=== PATIENT | male | born 1960 | race Caucasian/White ===

== ENCOUNTER 2018-05-01 13:36 | Emergency (ER) | payer OTHER ==
[~2018-05-01] VITALS: Ht 177.8 cm; Wt 120.2 kg
[~2018-05-01 13:36] MED LIST: ALLO100 PO; ASPI81CH PO; Atenolol25 MG PO; BENZ100A PO; CYCL10 PO; GABA300 PO; HYDMOR2 PO; KETO10 PO; NAPR500 PO; PANT40 PO; Roxicodone5 MG PO; TERB250 PO; TRAM50 PO; Zofran Odt4 MG SL; Zofran Odt8 MG SL
[2018-05-01 14:37] LABS: Source, Urine Clean Catch
[2018-05-01 14:50] LABS: BASOPHILS ABSOLUTE AUTO 0.05 K/mm3 (0.00-0.23); BASOPHILS PERCENT AUTO 1 % (0-2); EOSINOPHILS ABSOLUTE AUTO 0.12 K/mm3 (0.00-0.68); EOSINOPHILS PERCENT AUTO 1 % (0-6); Hematocrit 42.2 % (37.0-53.0); Hemoglobin 13.9 g/dL (13.5-17.5); IMMATURE GRAN ABSOLUTE AUTO 0.03 K/mm3 (0.00-0.10); IMMATURE GRAN PERCENT AUTO 0 % (0-1); LYMPHOCYTES ABSOLUTE AUTO 2.07 K/mm3 (0.84-5.20); LYMPHOCYTES PERCENT AUTO 19 % (21-46); MONOCYTES ABSOLUTE AUTO 0.83 K/mm3 (0.16-1.47); MONOCYTES PERCENT AUTO 8 % (4-13); Mean Corpuscular HGB 28.4 pg (26.0-34.0); Mean Corpuscular HGB Conc 32.9 g/dL (31.5-36.5); Mean Corpuscular Volume 86 fL (80-100); Mean Platelet Volume 9.3 fL (9.1-12.4); NEUTROPHILS ABSOLUTE AUTO 7.59 K/mm3 (1.96-9.15); NEUTROPHILS PERCENT AUTO 71 % (41-73); Platelet Count 222 K/mm3 (150-400); RDW Coefficient Variation 12.6 % (11.7-14.2); RDW Standard Deviation 39.8 fL (35.1-46.3); Red Blood Cell Count 4.89 M/mm3 (4.30-5.90); White Blood Cell Count 10.69 K/mm3 (4.00-11.30)
[2018-05-01 14:52] LABS: Appearance, Urine Clear (Clear); Bilirubin, Urine Neg (Neg); Blood, Urine Neg (Neg); Color, Urine Yellow (P-Yellow); Glucose Qualitative, Urine Neg (Neg); Ketones, Urine Neg (Neg); Leukocyte Esterase, Urine Neg (Neg); Nitrite, Urine Neg (Neg); Protein, Urine Neg (Neg); Specific Gravity, Urine 1.025 (1.003-1.022); Urobilinogen, Urine NORM (Normal)
[2018-05-01 15:06] LABS: Alanine Aminotransfer (ALT/SGP 59 U/L (12-78); Albumin, Blood 4.1 g/dL (3.4-5.0); Albumin/Globulin Ratio 1.2 (0.8-1.8); Alk Phos 112 U/L (50-136); Anion Gap 8 mmol/L (6-16); Aspartate Aminotrans (AST/SGOT 23 U/L (12-37); Bilirubin, Total 1.5 mg/dL (0.1-1.0); Blood Urea Nitrogen 21 mg/dL (8-24); Bun/Creatinine Ratio 20.4 (12.0-20.0); CO2, Blood 25 mmol/L (21-32); Calcium, Blood 8.7 mg/dL (8.5-10.1); Chloride, Blood 108 mmol/L (98-108); Creatinine, Blood 1.03 mg/dL (0.60-1.20); Globulin, Blood 3.4 g/dL (2.2-4.0); Glomerular Filtration Rate >60 (60-); Glucose, Blood 112 mg/dL (70-99); Potassium, Blood 3.6 mmol/L (3.5-5.5); Sodium, Blood 141 mmol/L (136-145); Total Protein, Blood 7.5 g/dL (6.4-8.2)
[2018-05-01] MEDS ORDERED: ONDA4ODT MM (17:57)
[2018-05-01] MEDS ORDERED: Roxicodone5 MG PO (17:57)
[2018-05-01] MEDS ORDERED: Augmentin 875-1 EACH PO (17:57)
== END 2018-05-01 18:38 | disposition home or self-care (01) ==
LOC: ER 13:36
PROVIDERS: Emergency Medicine
DX: K57.32 Diverticulitis of large intestine without perforation or abscess without bleeding (principal); Z88.5 Allergy status to narcotic agent; Z88.8 Allergy status to other drugs, medicaments and biological substances; Z79.899 Other long term (current) drug therapy; Z79.82 Long term (current) use of aspirin; I10 Essential (primary) hypertension; K21.9 Gastro-esophageal reflux disease without esophagitis; E78.5 Hyperlipidemia, unspecified
CPT/HCPCS: 36415; 74177; 80053; 81003; 83605; 83690; 85025; 96361; 96374-59; 96375; 96376; 99284-25; J1170; J1885; J2405; J7120; Q9967

== ENCOUNTER 2018-05-03 15:42 | Inpatient (IN) | payer OTHER ==
[~2018-05-03] VITALS: Ht 177.8 cm; Wt 123.1 kg
[~2018-05-03 15:42] MED LIST changes: +Augmentin 875-1 EACH PO; +ONDA4ODT MM
[2018-05-03] MEDS ORDERED: LOSA50 PO (16:32)
[2018-05-03 16:52] LABS: BASOPHILS ABSOLUTE AUTO 0.05 K/mm3 (0.00-0.23); BASOPHILS PERCENT AUTO 1 % (0-2); EOSINOPHILS ABSOLUTE AUTO 0.13 K/mm3 (0.00-0.68); EOSINOPHILS PERCENT AUTO 2 % (0-6); Hematocrit 38.8 % (37.0-53.0); Hemoglobin 12.9 g/dL (13.5-17.5); IMMATURE GRAN ABSOLUTE AUTO 0.02 K/mm3 (0.00-0.10); IMMATURE GRAN PERCENT AUTO 0 % (0-1); LYMPHOCYTES ABSOLUTE AUTO 2.17 K/mm3 (0.84-5.20); LYMPHOCYTES PERCENT AUTO 27 % (21-46); MONOCYTES ABSOLUTE AUTO 0.52 K/mm3 (0.16-1.47); MONOCYTES PERCENT AUTO 6 % (4-13); Mean Corpuscular HGB 28.9 pg (26.0-34.0); Mean Corpuscular HGB Conc 33.2 g/dL (31.5-36.5); Mean Corpuscular Volume 87 fL (80-100); Mean Platelet Volume 9.6 fL (9.1-12.4); NEUTROPHILS ABSOLUTE AUTO 5.19 K/mm3 (1.96-9.15); NEUTROPHILS PERCENT AUTO 64 % (41-73); Platelet Count 177 K/mm3 (150-400); RDW Coefficient Variation 12.4 % (11.7-14.2); RDW Standard Deviation 39.4 fL (35.1-46.3); Red Blood Cell Count 4.47 M/mm3 (4.30-5.90); White Blood Cell Count 8.08 K/mm3 (4.00-11.30)
[2018-05-03 17:16] LABS: Alanine Aminotransfer (ALT/SGP 62 U/L (12-78); Albumin, Blood 3.4 g/dL (3.4-5.0); Albumin/Globulin Ratio 0.9 (0.8-1.8); Alk Phos 98 U/L (50-136); Anion Gap 5 mmol/L (6-16); Aspartate Aminotrans (AST/SGOT 26 U/L (12-37); Bilirubin, Total 1.4 mg/dL (0.1-1.0); Blood Urea Nitrogen 16 mg/dL (8-24); Bun/Creatinine Ratio 17.3 (12.0-20.0); CO2, Blood 27 mmol/L (21-32); Calcium, Blood 8.5 mg/dL (8.5-10.1); Chloride, Blood 106 mmol/L (98-108); Creatinine, Blood 0.92 mg/dL (0.60-1.20); Globulin, Blood 3.6 g/dL (2.2-4.0); Glomerular Filtration Rate >60 (60-); Glucose, Blood 82 mg/dL (70-99); Potassium, Blood 4.2 mmol/L (3.5-5.5); Sodium, Blood 138 mmol/L (136-145)
--- NOTE | 2018-05-03 18:46 | NUR ---
PATIENT ADMITTED THIS SHIFT. HE IS ALERT AND ORIENTED. PAIN IN LOWER LEFT FLANK. PATIENT STATES THE PAIN AND PAIN MEDICATION MAKE HIS DIZZY AT TIMES. ENCOURAGED TO USE CALL LIGHT WHEN WHEN NEEDED. BEDSIDE URINAL GIVEN. AT BEDSIDE.
--- NOTE | 2018-05-04 04:45 | NUR ---
SHIFT SUMMARY THE PATIENT PRESENTED THIS SHIFT WITH ABDOMINAL PAIN, VITALS WNL, CLEAR LUNGS AND A&O X4. THE PATIENT WAS TAKEN TO X-RAY AT THE START OF THE SHIFT. THE PATIENT HAS BEEN AWAKE MOST OF THE SHIFT. THE PATIENT HAS REQUESTED PAIN MEDICATIONS TWICE THIS SHIFT. WILL CONTINUE TO MONITOR.
--- NOTE | 2018-05-04 18:39 | NUR ---
PATIENT HAS HAD NO COMPLAINTS OF PAIN AND STATED WHEN ASK, THAT HIS DISCOMFORT WAS NOT SOMETHING HE NEEDED PAIN MEDS FOR. HE IS ALERT AND ORIENTED AND PLEASANT, COOPERATIVE WITH CARES. NO CHANGES THIS SHIFT.
--- NOTE | 2018-05-05 06:40 | NUR ---
SHIFT SUMMARY: PT MEDCIATED FOR PAIN 3X THIS SHIFT c IV FENTANYL. PT REPORTS LLQ PAIN THAT INTESTIFIES c MOVEMENT. DENIES N/V/D. NO OTHER CHANGES. WILL CONT TO MONITOR AND PROVIDE CARE UNTIL PRESUMED BY ONCOMING RN.
--- NOTE | 2018-05-05 18:04 | NUR ---
SHIFT SUMMARY PT AXO, PLEASANT AND COOPERATIVE WITH CARE. UP AD TAYLOR IN ROOM, UP EVERY 45 MINUTES TO VOID URINE. CONTINUES TO HAVE LOOSE STOOL. PT REFUSED PAIN MEDICATION THIS SHIFT, STATES HE IS COMFORTABLE AT REST. AT 1440 PT'S SPOUSE COMPLAINED OF PATIENT HAVING PINPOINT RED RASH ON ARMS, ABDOMEN AND LEGS. DR BARRON NOTIFIED AT 1513, NEW ORDERS INIIATED. BED IN LOW POSITION, CALL LIGHT WITHIN REACH.
--- NOTE | 2018-05-06 04:43 | NUR ---
SHIFT SUMMARY: OT A&O X 4, INDEPENDENT IN ROOM. PT IS REPORTING MILD PAIN THAT INTESIFIES c MOVEMENT, HOWEVER IS REFUSING PAIN MEDS. PT REPORTS CONCERN IN REGARDS TO SBP BEING 140 - 150; HOWEVER, THIS IS WHAT THE PT HAS BEEN RUNNING SINCE ADMISSION. PT REPORTS HE NORMALLY RUNS 120 - 130. OTHERWISE VSS. PINPOINT RASH TO L ARM AND ACROSS ABDOMEN FROM POSSIBLE REACTION TO LEVAQUIN; PT HAS BEEN SWITCHED TO BACTRIM AND STARTED FIRST DOSE @ 2100. NS RUNNING @ 100 ML/HR. NO OTHER CHANGES TO REPORT. WILL CONT TO MONITOR AND PROVIDE CARE UNTIL PRESUMED BY ONCOMING RN.
[2018-05-06 05:16] LABS: BASOPHILS ABSOLUTE AUTO 0.05 K/mm3 (0.00-0.23); BASOPHILS PERCENT AUTO 1 % (0-2); EOSINOPHILS ABSOLUTE AUTO 0.15 K/mm3 (0.00-0.68); EOSINOPHILS PERCENT AUTO 2 % (0-6); Hematocrit 43.5 % (37.0-53.0); Hemoglobin 14.5 g/dL (13.5-17.5); IMMATURE GRAN ABSOLUTE AUTO 0.02 K/mm3 (0.00-0.10); IMMATURE GRAN PERCENT AUTO 0 % (0-1); LYMPHOCYTES PERCENT AUTO 20 % (21-46); MONOCYTES PERCENT AUTO 6 % (4-13); Mean Corpuscular HGB 28.2 pg (26.0-34.0); Mean Corpuscular HGB Conc 33.3 g/dL (31.5-36.5); Mean Corpuscular Volume 85 fL (80-100); Mean Platelet Volume 9.1 fL (9.1-12.4); NEUTROPHILS ABSOLUTE AUTO 6.91 K/mm3 (1.96-9.15); NEUTROPHILS PERCENT AUTO 72 % (41-73); Platelet Count 214 K/mm3 (150-400); RDW Coefficient Variation 12.3 % (11.7-14.2); RDW Standard Deviation 37.6 fL (35.1-46.3); Red Blood Cell Count 5.14 M/mm3 (4.30-5.90); White Blood Cell Count 9.63 K/mm3 (4.00-11.30)
[2018-05-06 05:40] LABS: Anion Gap 8 mmol/L (6-16); Blood Urea Nitrogen 17 mg/dL (8-24); Bun/Creatinine Ratio 17.5 (12.0-20.0); CO2, Blood 26 mmol/L (21-32); Calcium, Blood 9.1 mg/dL (8.5-10.1); Chloride, Blood 107 mmol/L (98-108); Creatinine, Blood 0.97 mg/dL (0.60-1.20); Glomerular Filtration Rate >60 (60-); Glucose, Blood 94 mg/dL (70-99); Potassium, Blood 4.2 mmol/L (3.5-5.5); Sodium, Blood 141 mmol/L (136-145)
[2018-05-06] MEDS ORDERED: DIPH50 PO (07:35)
[2018-05-06] MEDS ORDERED: ROXICODONE5 MG PO (07:35)
[2018-05-06] MEDS ORDERED: METR500 PO (07:36)
[2018-05-06] MEDS ORDERED: Bactrim Ds Tab1 EACH PO (07:37)
--- NOTE | 2018-05-06 10:54 | NUR ---
DISCHARGE SUMMARY PT LEFT ROOM AT THIS TIME VIA WHEELCHAIR AND HIGH SPEED PRINTER OPERATOR ESCORT. PT EDUCATED ON NEW MEDICATIONS AND INSTRUCTED TO PICK THEM UP AT PHARMACY, TAKE THEM PRESCRIBED FOR ENTIRE DURATION. PT AGREES TO FOLLOW UP WITH DR FRANZ TOMORROW AND TO ADHERE TO FULL LIQUID DIET FOR A DAY. IV DISCONTINUED AND BELONINGS RETURNED.
== END 2018-05-06 11:24 | disposition home or self-care (01) | DRG 392 ==
LOC: MEDS 15:42 → ENPENDDIS 05-06 09:52 → MEDS 05-06 11:24
PROVIDERS: Internal Medicine; ADMIT Hospitalist
DX: K57.32 Diverticulitis of large intestine without perforation or abscess without bleeding (principal); Z68.42 Body mass index [BMI] 45.0-49.9, adult; I10 Essential (primary) hypertension; M10.9 Gout, unspecified; E79.0 Hyperuricemia without signs of inflammatory arthritis and tophaceous disease; K27.9 Peptic ulcer, site unspecified, unspecified as acute or chronic, without hemorrhage or perforation; R21 Rash and other nonspecific skin eruption; T36.0X5A Adverse effect of penicillins, initial encounter; K21.9 Gastro-esophageal reflux disease without esophagitis; E78.5 Hyperlipidemia, unspecified; E66.01 Morbid (severe) obesity due to excess calories
CPT/HCPCS: 36415; 74177; 80048; 80053; 85025; J1956; J3010; J7030; Q9967

== ENCOUNTER 2018-07-23 12:49 | Day surgery (SDC) | payer OTHER ==
[~2018-07-23] VITALS: Ht 177.8 cm; Wt 118.5 kg
[~2018-07-23 12:49] MED LIST changes: +Bactrim Ds Tab1 EACH PO; +DIPH50 PO; +LOSA25 PO; +LOSA50 PO; +METR500 PO; +ROXICODONE5 MG PO
[2018-07-23] MEDS ORDERED: NAPR220 PO (13:13)
--- NOTE | 2018-07-23 13:19 | NUR ---
07/23/18 1319 Johnna Barbosa 1ST IV ATTEMPT IN RAC, VALVE, STARTED BY ANAND MEJÍA 2ND IV ATTEMPT RW VALVE,STARTED ANAND MEJÍA 3RD IV ATTEMPT IN LH SUCCESSFUL, STARTED BY ANAND MEJÍA
== END 2018-07-23 14:53 | disposition home or self-care (01) ==
LOC: ORSCSDS 12:49
PROVIDERS: Student in an Organized Health Care Education/Training Program
PROC: 0DB68ZX Excision of Stomach, Via Natural or Artificial Opening Endoscopic, Diagnostic (ICD-10-PCS; principal; 2018-07-23 14:00)
PROC: 0DBN8ZX Excision of Sigmoid Colon, Via Natural or Artificial Opening Endoscopic, Diagnostic (ICD-10-PCS; principal; 2018-07-23 14:00)
DX: K21.9 Gastro-esophageal reflux disease without esophagitis (principal); K31.7 Polyp of stomach and duodenum; K44.9 Diaphragmatic hernia without obstruction or gangrene; K29.70 Gastritis, unspecified, without bleeding; K63.5 Polyp of colon; K57.30 Diverticulosis of large intestine without perforation or abscess without bleeding; Z87.19 Personal history of other diseases of the digestive system; I10 Essential (primary) hypertension; E79.0 Hyperuricemia without signs of inflammatory arthritis and tophaceous disease; E78.00 Pure hypercholesterolemia, unspecified; Z79.899 Other long term (current) drug therapy
CPT/HCPCS: 88305; 88342; J2250; J2704; J7120

== ENCOUNTER 2018-10-24 17:09 | Emergency (ER) | payer OTHER, SELFPAY ==
[~2018-10-24] VITALS: Ht 177.8 cm; Wt 123.8 kg
[~2018-10-24 17:09] MED LIST changes: +NAPR220 PO
[2018-10-24] MEDS ORDERED: HYDR1TAB94 PO (19:14)
== END 2018-10-24 19:23 | disposition home or self-care (01) ==
LOC: ER 17:09
DX: R60.0 Localized edema (principal); Z88.5 Allergy status to narcotic agent; Z88.8 Allergy status to other drugs, medicaments and biological substances; Z79.899 Other long term (current) drug therapy; I10 Essential (primary) hypertension; K21.9 Gastro-esophageal reflux disease without esophagitis; E78.5 Hyperlipidemia, unspecified
CPT/HCPCS: 73630; 99283-25

== ENCOUNTER 2019-09-19 20:42 | Inpatient (IN) | payer OTHER ==
[~2019-09-19] VITALS: Ht 177.8 cm; Wt 126.2 kg
[~2019-09-19 20:42] MED LIST changes: +HYDR1TAB94 PO
[2019-09-19 21:44] LABS: BASOPHILS ABSOLUTE AUTO 0.05 K/mm3 (0.00-0.23); BASOPHILS PERCENT AUTO 1 % (0-2); EOSINOPHILS ABSOLUTE AUTO 0.06 K/mm3 (0.00-0.68); EOSINOPHILS PERCENT AUTO 1 % (0-6); Hemoglobin 13.7 g/dL (13.5-17.5); IMMATURE GRAN ABSOLUTE AUTO 0.03 K/mm3 (0.00-0.10); IMMATURE GRAN PERCENT AUTO 0 % (0-1); LYMPHOCYTES ABSOLUTE AUTO 2.16 K/mm3 (0.84-5.20); LYMPHOCYTES PERCENT AUTO 22 % (21-46); MONOCYTES ABSOLUTE AUTO 0.62 K/mm3 (0.16-1.47); MONOCYTES PERCENT AUTO 6 % (4-13); Mean Corpuscular HGB 28.1 pg (26.0-34.0); Mean Corpuscular HGB Conc 32.6 g/dL (31.5-36.5); Mean Corpuscular Volume 86 fL (80-100); Mean Platelet Volume 10.1 fL (9.1-12.4); NEUTROPHILS ABSOLUTE AUTO 6.94 K/mm3 (1.96-9.15); NEUTROPHILS PERCENT AUTO 70 % (41-73); Platelet Count 246 K/mm3 (150-400); RDW Coefficient Variation 12.6 % (11.7-14.2); RDW Standard Deviation 39.8 fL (35.1-46.3); Red Blood Cell Count 4.88 M/mm3 (4.30-5.90); White Blood Cell Count 9.86 K/mm3 (4.00-11.30)
[2019-09-19 22:01] LABS: Alanine Aminotransfer (ALT/SGP 57 U/L (12-78); Albumin, Blood 4.1 g/dL (3.4-5.0); Albumin/Globulin Ratio 1.2 (0.8-1.8); Alk Phos 115 U/L (50-136); Anion Gap 6 mmol/L (6-16); Aspartate Aminotrans (AST/SGOT 26 U/L (12-37); Bilirubin, Total 0.6 mg/dL (0.1-1.0); Blood Urea Nitrogen 24 mg/dL (8-24); Bun/Creatinine Ratio 26.1 (12.0-20.0); CO2, Blood 28 mmol/L (21-32); Calcium, Blood 8.9 mg/dL (8.5-10.1); Chloride, Blood 108 mmol/L (98-108); Creatinine, Blood 0.92 mg/dL (0.60-1.20); Globulin, Blood 3.5 g/dL (2.2-4.0); Glomerular Filtration Rate >60 (60-); Glucose, Blood 120 mg/dL (70-99); Potassium, Blood 3.7 mmol/L (3.5-5.5); Sodium, Blood 142 mmol/L (136-145); Total Protein, Blood 7.6 g/dL (6.4-8.2)
[2019-09-20 00:44] LABS: CHOL/HDL RATIO 6.6; Cholesterol 239 mg/dL (50-200); HDL Cholesterol 36 mg/dL (>39); LDL/HDL RATIO 4.1; Low Density Lipoprotein Chol 148 mg/dL (0-110); Triglycerides 276 mg/dL (30-160); Very Low Density Lipoprot Chol 55 mg/dL (6-32)
[2019-09-20 01:12] LABS: CHOL/HDL RATIO 6.1; Cholesterol 208 mg/dL (50-200); HDL Cholesterol 34 mg/dL (>39); LDL/HDL RATIO 3.8; Low Density Lipoprotein Chol 130 mg/dL (0-110); Triglycerides 220 mg/dL (30-160); Very Low Density Lipoprot Chol 44 mg/dL (6-32)
--- NOTE | 2019-09-20 04:50 | NUR ---
BUSINESS ANALYST MANAGER SUMMARY PT A/O X4. ARRIVED TO UNIT VIA GURNEY. INTRODUCED TO ROOM AND STAFF. SPEECH IS A LITTLE SLURRED BUT HARD TO TELL IF THIS IS HOW PT NORMALLY SPEAK. NO FACIAL DROPPING. EXPRESSIONS ARE SYMMETRICAL. PUPILS REACTIVE TO LIGHT. PT HAS RIGHT SIDED WEAKNESS. DIRECTOR OF MARKETING AND PROMOTIONS FEELS EQUAL IN STRENGTH, HOWEVER WHEN PT SIGNED FORM USING HIS RIGHT HAND, I CAN NOTICIBLALLY TELL PT WAS HAVING A HARD TIME SIGNING. PT EXPRESSED RIGHT HAND IS HIS DOMINANT HAND AND EXPRESSED THAT HE IS USUALLY NOT WEAK ON RIGHT SIDE. SLEPT WELL TONIGHT. SR IN THE 80'S ON TELE. DENIES CHEST PAIN, SOB. PT STATES HE FEELS SOME PRESSURE IN HIS HEAD, NOT PAIN AND IT IS TOLERABLE. WILL CONTINUE TO MONITOR.
--- NOTE | 2019-09-20 09:43 | NUR ---
NOTIFIED THAT I DID NOT GIVE LIPITOR PATIENT SAID HE WAS ON STATINS BEFORE AND HE DEVELOPED MUSCLE PAIN. MD TO CHECK CHART AND MAYBE GIVE DIFFERENT MED
--- NOTE | 2019-09-20 18:23 | NUR ---
ALERT. ORIENTED. PATIENT IS RT HANDED AND STS RT SIDE IS NORMALLY STRONGER THAN LEFT. DEPUTY DIRECTOR OF NURSING EQUAL WITH RT SIDED DRIFT. PUSH PULL EQUAL. NO OBVIOUS FACIAL DROOP AND TONGUE DOES NOT DEVIATE. AWARE PATIENT HAD MUSCLE WEAKNESS WITH FORMER STATIN. UNLABORED RESPIRATIONS. NO ACUTE CHANGES. WCTM
--- NOTE | 2019-09-21 04:12 | NUR ---
SHIFT SUMMARY PT HAS HAD NO ACUTE CHANGES THIS SHIFT, NO C/O ANY KIND, [facility] CALLED 2X FOR UPDATE ON PT, RETRUNED HER CALL @ [phone] ([phone]) AND LEFT MESSAGE FOR CALLBACK- DID NOT HER FROM HER. PT HAS BEEN A&O, COOPERATIVE W/CARE, SLEPT T/O THE NIGHT AND IS SLEEPING AT THIS TIME, CALL LIGHT IN REACH, WILL CONT TO MONITOR UNTIL REPORT GIVEN TO DAY RN.
--- NOTE | 2019-09-21 04:35 | NUR ---
SHIFT SUMMARY PT HAS HAD NO ACUTE CHANGES THIS SHIFT, NO C/O ANY KIND, PT SLEPT T/O THE NIGHT & IS SLEEPING AT THIS TIME, CALL LIGHT IN REACH, WILL CONT TO MONITOR UNTIL REPORT GIVEN TO DAY RN.
[2019-09-21 06:03] LABS: BASOPHILS ABSOLUTE AUTO 0.07 K/mm3 (0.00-0.23); BASOPHILS PERCENT AUTO 1 % (0-2); EOSINOPHILS ABSOLUTE AUTO 0.12 K/mm3 (0.00-0.68); EOSINOPHILS PERCENT AUTO 1 % (0-6); Hematocrit 39.6 % (37.0-53.0); Hemoglobin 12.7 g/dL (13.5-17.5); IMMATURE GRAN ABSOLUTE AUTO 0.04 K/mm3 (0.00-0.10); IMMATURE GRAN PERCENT AUTO 0 % (0-1); LYMPHOCYTES ABSOLUTE AUTO 2.43 K/mm3 (0.84-5.20); LYMPHOCYTES PERCENT AUTO 26 % (21-46); MONOCYTES ABSOLUTE AUTO 0.51 K/mm3 (0.16-1.47); MONOCYTES PERCENT AUTO 6 % (4-13); Mean Corpuscular HGB 27.9 pg (26.0-34.0); Mean Corpuscular HGB Conc 32.1 g/dL (31.5-36.5); Mean Corpuscular Volume 87 fL (80-100); Mean Platelet Volume 10.4 fL (9.1-12.4); NEUTROPHILS ABSOLUTE AUTO 6.06 K/mm3 (1.96-9.15); NEUTROPHILS PERCENT AUTO 66 % (41-73); Platelet Count 178 K/mm3 (150-400); RDW Coefficient Variation 12.7 % (11.7-14.2); RDW Standard Deviation 39.9 fL (35.1-46.3); Red Blood Cell Count 4.56 M/mm3 (4.30-5.90); White Blood Cell Count 9.23 K/mm3 (4.00-11.30)
[2019-09-21 06:39] LABS: Alanine Aminotransfer (ALT/SGP 61 U/L (12-78); Albumin, Blood 3.5 g/dL (3.4-5.0); Alk Phos 99 U/L (50-136); Anion Gap 6 mmol/L (6-16); Aspartate Aminotrans (AST/SGOT 26 U/L (12-37); Bilirubin, Total 0.8 mg/dL (0.1-1.0); Blood Urea Nitrogen 23 mg/dL (8-24); Bun/Creatinine Ratio 24.4 (12.0-20.0); CO2, Blood 26 mmol/L (21-32); Calcium, Blood 8.3 mg/dL (8.5-10.1); Chloride, Blood 109 mmol/L (98-108); Creatinine, Blood 0.94 mg/dL (0.60-1.20); Globulin, Blood 3.4 g/dL (2.2-4.0); Glomerular Filtration Rate >60 (60-); Glucose, Blood 92 mg/dL (70-99); Potassium, Blood 3.8 mmol/L (3.5-5.5); Sodium, Blood 141 mmol/L (136-145); Total Protein, Blood 6.9 g/dL (6.4-8.2)
--- NOTE | 2019-09-21 17:10 | NUR ---
SHIFT SUMMARY PATIENT DENIES PAIN, NAUSEA, AND SHORTNESS OF BREATH. PATIENT UP SBA W/FWW IN ROOM. AT BEDSIDE. PATIENT WORKED WITH PT TODAY. PATIENT WALKED IN HALLWAY WITH PT. PATIENT CONTINUES TO HAVE MILD RIGHT SIDED WEAKNESS. PLAN FOR PATIENT TO DISCHARGE TO REHAB ON MONDAY. PATIENT'S MOTHER IS CURRENTLY AT [facility], PATIENT WOULD LIKE TO GO TO [facility] TO BE NEAR HER IF POSSIBLE. CALL LIGHT IN REACH.
--- NOTE | 2019-09-22 04:19 | NUR ---
SHIFT SUMMARY PT HAS HAD NO ACUTE CHANGES THIS SHIFT, NO C/O ANY KIND, SLEPT T/O THE NIGHT & AT THIS TIME, CALL LIGHT IN REACH, WILL CONT TO MONITOR UNTIL REPORT GIVEN TO DAY RN.
[2019-09-22 04:48] LABS: BASOPHILS ABSOLUTE AUTO 0.07 K/mm3 (0.00-0.23); BASOPHILS PERCENT AUTO 1 % (0-2); EOSINOPHILS ABSOLUTE AUTO 0.12 K/mm3 (0.00-0.68); EOSINOPHILS PERCENT AUTO 1 % (0-6); Hematocrit 40.1 % (37.0-53.0); Hemoglobin 12.9 g/dL (13.5-17.5); IMMATURE GRAN ABSOLUTE AUTO 0.02 K/mm3 (0.00-0.10); IMMATURE GRAN PERCENT AUTO 0 % (0-1); LYMPHOCYTES ABSOLUTE AUTO 2.43 K/mm3 (0.84-5.20); LYMPHOCYTES PERCENT AUTO 25 % (21-46); MONOCYTES ABSOLUTE AUTO 0.58 K/mm3 (0.16-1.47); MONOCYTES PERCENT AUTO 6 % (4-13); Mean Corpuscular HGB 27.7 pg (26.0-34.0); Mean Corpuscular HGB Conc 32.2 g/dL (31.5-36.5); Mean Corpuscular Volume 86 fL (80-100); Mean Platelet Volume 9.7 fL (9.1-12.4); NEUTROPHILS ABSOLUTE AUTO 6.42 K/mm3 (1.96-9.15); NEUTROPHILS PERCENT AUTO 67 % (41-73); Platelet Count 176 K/mm3 (150-400); RDW Coefficient Variation 12.4 % (11.7-14.2); RDW Standard Deviation 38.9 fL (35.1-46.3); Red Blood Cell Count 4.65 M/mm3 (4.30-5.90); White Blood Cell Count 9.64 K/mm3 (4.00-11.30)
[2019-09-22 05:10] LABS: Alanine Aminotransfer (ALT/SGP 55 U/L (12-78); Albumin, Blood 3.5 g/dL (3.4-5.0); Alk Phos 103 U/L (50-136); Anion Gap 6 mmol/L (6-16); Aspartate Aminotrans (AST/SGOT 21 U/L (12-37); Blood Urea Nitrogen 19 mg/dL (8-24); Bun/Creatinine Ratio 21.2 (12.0-20.0); CO2, Blood 26 mmol/L (21-32); Calcium, Blood 8.4 mg/dL (8.5-10.1); Chloride, Blood 108 mmol/L (98-108); Globulin, Blood 3.4 g/dL (2.2-4.0); Glomerular Filtration Rate >60 (60-); Glucose, Blood 99 mg/dL (70-99); Potassium, Blood 3.9 mmol/L (3.5-5.5); Sodium, Blood 140 mmol/L (136-145); Total Protein, Blood 6.9 g/dL (6.4-8.2)
--- NOTE | 2019-09-22 16:57 | NUR ---
SHIFT SUMMARY PATIENT DENIES PAIN, NAUSEA, AND SHORTNESS OF BREATH. PATIENT UP SBA W/FWW. PATIENT AMBULATED IN HALLWAY WITH STAFF. PATIENT REPORTS HE FEELS WEAKER IN HIS RIGHT LEG WHEN AMBULATING. UP IN CHAIR FOR MEALS. PENDING DISCHARGE TO REHAB. CALL LIGHT IN REACH.
--- NOTE | 2019-09-23 04:51 | NUR ---
SHIFT SUMMARY PT HAS HAD NO ACUTE CHANGES THIS SHIFT, NO C/O ANY KIND, PT WALKED W/STAFF ABOUT 200 FT BEFORE BED, HAD SLEEP STUDY THIS NOC, SLEEPING AT THIS TIME, CALL LIGHT IN REACH, WILL CONT TO MONITOR UNTIL REPORT GIVEN TO DAY RN.
--- NOTE | 2019-09-23 18:26 | NUR ---
PT AOX3-4 COOPERATIVE OF CARE. PT HAS BEEN RESTING IN BED ALL DAY. PT DENIES ANY PAIN AT THIS TIME. INDEPENDENT TO RESTROOM. WILL CONTINUE TO MONITOR.
--- NOTE | 2019-09-24 03:11 | NUR ---
SHIFT SUMMARY NO ACUTE CHANGES THIS SHIFT. AOX4. VSS. DENIES PAIN, N/V OR DYSPNEA. REPORTS WEAKNESS IN RT SIDE, STATING HE DOES NOT HAVE FINE MOTOR MOVEMENT, AGRICULTURAL SYSTEMS SPECIALIST ARE ONLY SLIGHTLY WEAKER W/RT HAND. NO SLURRING OF WORDS OR FACIAL DROOP. PT STATED HIS RECIEVED A PHONE CALL FROM A REHAB LOCATED IN [place] & THE PLAN IS FOR HIM TO DC 09/24/19. CALL LIGHT IS IN REACH. WCTM.
[2019-09-24] MEDS ORDERED: ASPI81CH PO (15:27)
[2019-09-24] MEDS ORDERED: ATOR80 PO (15:27)
--- NOTE | 2019-09-24 18:34 | NUR ---
PT TRANSFERED TO REHAB FACILITY IN [place]. PT DISCHARGED AND HAD ALL PAPERWORK REVIEWED AND EDUCATINAL MATERILA SENT WITH HIM. NO DISTRESS NOTED. PT HAD BEEN UP WORKING WITH PHYSICAL THERAPY AND WALKER, STANDBY ASSIST. PT CALLED APPROPRIATELY. WAS IN ROOM WHEN TRANSPORT ARRIVED. ALL PERSONAL BELONGINGS WERE COLLECTED.
== END 2019-09-24 17:17 | DRG 65 ==
LOC: ER 20:42 → MEDS 09-20 01:11
PROVIDERS: Emergency Medicine; Internal Medicine; ADMIT Internal Medicine
DX: I63.81 Other cerebral infarction due to occlusion or stenosis of small artery (principal); G81.91 Hemiplegia, unspecified affecting right dominant side; Z20.828 Contact with and (suspected) exposure to other viral communicable diseases; R26.81 Unsteadiness on feet; I10 Essential (primary) hypertension; E78.5 Hyperlipidemia, unspecified; K21.9 Gastro-esophageal reflux disease without esophagitis; G47.33 Obstructive sleep apnea (adult) (pediatric); E66.01 Morbid (severe) obesity due to excess calories; R40.2362 Coma scale, best motor response, obeys commands, at arrival to emergency department; R40.2132 Coma scale, eyes open, to sound, at arrival to emergency department; R40.2252 Coma scale, best verbal response, oriented, at arrival to emergency department; Z68.39 Body mass index [BMI] 39.0-39.9, adult; Z79.1 Long term (current) use of non-steroidal anti-inflammatories (NSAID); Z79.891 Long term (current) use of opiate analgesic; Z79.899 Other long term (current) drug therapy; Z88.6 Allergy status to analgesic agent; Z88.5 Allergy status to narcotic agent
CPT/HCPCS: 36415; 70450; 70496; 70498; 70551; 80053; 80061; 85025; 92523; 93005; 93010; 93306; 94762; 96360; 96361; 97110; 97112; 97112-CQ; 97116; 97162; 97166; 97530; 99285-25; A9270-GY; J1650; J7030; Q9967; U0002

== ENCOUNTER → 2020-12-24 | Outpatient (CLI) | payer OTHER ==
[~2020-12-24] MED LIST changes: +ATOR80 PO
== END | disposition home or self-care (01) ==
LOC: LAB SHORT 13:40
DX: E11.9 Type 2 diabetes mellitus without complications (principal)
CPT/HCPCS: 82043

== ENCOUNTER → 2022-11-07 | Outpatient (CLI) | payer OTHER ==
[2022-11-07 16:03] LABS: Bun/Creatinine Ratio 26.3 (12.0-20.0); Calcium, Blood 9.3 mg/dL (8.5-10.1); Creatinine, Blood 0.99 mg/dL (0.60-1.20); Potassium, Blood 3.8 mmol/L (3.5-5.5)
[2022-11-07 17:20] LABS: Microalb/Creat Ratio UR, Rand 12.324 mg/g (0.000-30.000); Microalbumin, Random Urine 40.3 mg/L (0.000-20.000)
== END ==
LOC: LAB SHORT 10:30 → LAB 10:30
PROVIDERS: Hospitalist
DX: I10 Essential (primary) hypertension (principal)
CPT/HCPCS: 80048; 82043; 82570

== ENCOUNTER → 2023-02-07 | Outpatient (CLI) | payer OTHER ==
[2023-02-07 21:05] LABS: Prostate Specific Antigen 0.668 ng/mL (0.000-4.000)
[2023-02-09 16:07] LABS: FREE TESTOSTERONE(DIRECT) 4.7 pg/mL (6.6-18.1); TESTOSTERONE, SERUM 152 ng/dL (264-916)
== END ==
LOC: LAB 14:33 → LAB SHORT 14:33
PROVIDERS: Hospitalist
DX: R68.82 Decreased libido (principal); Z12.5 Encounter for screening for malignant neoplasm of prostate
CPT/HCPCS: 84402; 84403; G0103

== ENCOUNTER → 2023-11-29 | Outpatient (CLI) | payer OTHER ==
[2023-11-29 14:37] LABS: BASOPHILS ABSOLUTE AUTO 0.05 K/mm3 (0.00-0.23); BASOPHILS PERCENT AUTO 1 % (0-2); EOSINOPHILS ABSOLUTE AUTO 0.12 K/mm3 (0.00-0.68); EOSINOPHILS PERCENT AUTO 1 % (0-6); Hematocrit 46.4 % (37.0-53.0); Hemoglobin 14.9 g/dL (13.5-17.5); IMMATURE GRAN ABSOLUTE AUTO 0.02 K/mm3 (0.00-0.10); IMMATURE GRAN PERCENT AUTO 0 % (0-1); LYMPHOCYTES ABSOLUTE AUTO 1.59 K/mm3 (0.84-5.20); LYMPHOCYTES PERCENT AUTO 18 % (21-46); MONOCYTES ABSOLUTE AUTO 0.52 K/mm3 (0.16-1.47); MONOCYTES PERCENT AUTO 6 % (4-13); Mean Corpuscular HGB 26.8 pg (26.0-34.0); Mean Corpuscular HGB Conc 32.1 g/dL (31.5-36.5); Mean Corpuscular Volume 84 fL (80-100); Mean Platelet Volume 9.4 fL (9.1-12.4); NEUTROPHILS ABSOLUTE AUTO 6.42 K/mm3 (1.96-9.15); NEUTROPHILS PERCENT AUTO 74 % (41-73); Platelet Count 247 K/mm3 (150-400); RDW Coefficient Variation 14.3 % (11.7-14.2); RDW Standard Deviation 43.8 fL (35.1-46.3); Red Blood Cell Count 5.55 M/mm3 (4.30-5.90); White Blood Cell Count 8.72 K/mm3 (4.00-11.30)
[2023-12-05 23:38] LABS: TESTOSTERONE, FREE BY DIALYSIS 83.7 pg/mL (47.0-244.0); TESTOSTERONE, TOTAL MASS SPEC 416.2 ng/dL (300.0-720.0)
== END ==
LOC: LAB SHORT 13:46 → LAB 13:46
PROVIDERS: Hospitalist
DX: E29.1 Testicular hypofunction (principal); Z12.5 Encounter for screening for malignant neoplasm of prostate
CPT/HCPCS: 84402; 84403; 85025; G0103

== ENCOUNTER → 2024-03-01 | Outpatient (CLI) | payer OTHER ==
[2024-03-01 14:32] LABS: Microalb/Creat Ratio UR, Rand 12.638 mg/g (0.000-30.000); Microalbumin, Random Urine 47.9 mg/L (0.000-20.000)
== END | disposition home or self-care (01) ==
LOC: LAB 12:30 → LAB SHORT 12:30
PROVIDERS: Hospitalist
DX: E11.69 Type 2 diabetes mellitus with other specified complication (principal)
CPT/HCPCS: 82043; 82570

== ENCOUNTER → 2024-03-12 | Outpatient (CLI) | payer OTHER | LOC: PLD 07:23 → LAB SHORT 07:23 → LAB 07:23 | DX: I87.2 Venous insufficiency (chronic) (peripheral) (principal); D48.5 Neoplasm of uncertain behavior of skin | CPT/HCPCS: 88305; 88312; 88313 ==

== ENCOUNTER 2024-09-16 09:34 | Emergency (ER) | payer OTHER ==
[~2024-09-16] VITALS: Ht 177.8 cm; Wt 127.0 kg
[2024-09-16] MEDS ORDERED: POTA10T PO (09:53)
[2024-09-16] MEDS ORDERED: Amlodipine Bes2.5 MG PO (09:53)
[2024-09-16] MEDS ORDERED: HYDCHL25 PO (09:53)
[2024-09-16] MEDS ORDERED: METF500 PO (09:54)
[2024-09-16] MEDS ORDERED: GLIM2 PO (09:54)
[2024-09-16] MEDS ORDERED: VALS80 PO (09:54)
[2024-09-16 10:01] LABS: BASOPHILS ABSOLUTE AUTO 0.07 K/mm3 (0.00-0.23); BASOPHILS PERCENT AUTO 1 % (0-2); EOSINOPHILS PERCENT AUTO 4 % (0-6); Hematocrit 50.3 % (37.0-53.0); Hemoglobin 16.6 g/dL (13.5-17.5); IMMATURE GRAN ABSOLUTE AUTO 0.01 K/mm3 (0.00-0.10); IMMATURE GRAN PERCENT AUTO 0 % (0-1); LYMPHOCYTES ABSOLUTE AUTO 1.74 K/mm3 (0.84-5.20); LYMPHOCYTES PERCENT AUTO 21 % (21-46); MONOCYTES PERCENT AUTO 7 % (4-13); Mean Corpuscular HGB 27.3 pg (26.0-34.0); Mean Corpuscular Volume 83 fL (80-100); Mean Platelet Volume 9.2 fL (9.1-12.4); NEUTROPHILS ABSOLUTE AUTO 5.75 K/mm3 (1.96-9.15); NEUTROPHILS PERCENT AUTO 68 % (41-73); Platelet Count 202 K/mm3 (150-400); RDW Coefficient Variation 13.8 % (11.7-14.2); Red Blood Cell Count 6.09 M/mm3 (4.30-5.90); White Blood Cell Count 8.47 K/mm3 (4.00-11.30)
[2024-09-16] MEDS ORDERED: Ondansetron HCl 2 MG / ML 2ML Vial IV ONE (10:05)
[2024-09-16] MEDS ORDERED: Meclizine HCl 25 MG Tab PO ONE (10:05)
[2024-09-16] MEDS ORDERED: Lactated Ringer's 1,000 ML IV ONE (10:10)
[2024-09-16 10:29] LABS: Albumin, Blood 3.9 g/dL (3.4-5.0); Bilirubin, Total 1.5 mg/dL (0.1-1.0); Bun/Creatinine Ratio 21.8 (12.0-20.0); Calcium, Blood 8.8 mg/dL (8.5-10.1); Creatinine, Blood 1.01 mg/dL (0.60-1.20); Globulin, Blood 3.8 g/dL (2.2-4.0); Total Protein, Blood 7.7 g/dL (6.4-8.2)
[2024-09-16] MEDS ORDERED: Acetaminophen 325 MG TABLET PO ONE (12:45)
[2024-09-16 13:00] VITALS: BP 132/84
[2024-09-16] MEDS ORDERED: MECL25 PO (13:01)
== END 2024-09-16 13:11 | disposition home or self-care (01) ==
LOC: ER 09:34
PROVIDERS: Emergency Medicine
DX: R42 Dizziness and giddiness (principal)
CPT/HCPCS: 70450; 80053; 84484; 85025; 93005; 93010; 96361; 96374; 99284-25; A9270; J2405; J7120